=== PATIENT | female | born 1980 | race Caucasian/White ===

== ENCOUNTER → 2016-05-19 | Outpatient (REF) | payer SELFPAY ==
[~2016-05-19] MED LIST: COUM2TAB10 PO; TYLE325T5 PO
[2016-05-19 17:30] LABS: INR 1.68
== END ==
LOC: M SFHCLERA 11:25
PROVIDERS: ATTEND Family Medicine
DX: I82.402 Acute embolism and thrombosis of unspecified deep veins of left lower extremity (principal)

== ENCOUNTER → 2016-06-23 | Outpatient (REF) | payer SELFPAY ==
[2016-06-23 19:10] LABS: INR 1.22
== END ==
LOC: M SFHCLERA 10:16
PROVIDERS: ATTEND Family Medicine
DX: I82.402 Acute embolism and thrombosis of unspecified deep veins of left lower extremity (principal)

== ENCOUNTER → 2016-07-07 | Outpatient (CLI) | payer SELFPAY ==
--- NOTE | 2016-07-07 15:17 | REP ---
Clinical: History of deep venous thrombosis to evaluate for resolution. Technique: Krishnan scale and color Doppler evaluation using linear high frequency transducer. Findings: Ultrasound examination of the left lower extremity deep venous structures from the common femoral vein to the popliteal vein demonstrates nonocclusive thrombus from the common femoral vein to the popliteal vein. Impression: Residual nonocclusive thrombus in the left common femoral vein at the popliteal vein. Signed by Waldo Jimenez MD 07/07/2016 03:09 P
== END ==
LOC: M LRY 13:58
DX: I82.402 Acute embolism and thrombosis of unspecified deep veins of left lower extremity (principal)

== ENCOUNTER → 2016-07-07 | Outpatient (REF) | payer SELFPAY ==
[2016-07-07 18:07] LABS: INR 1.06
== END ==
LOC: M SFHCLERA 14:48
PROVIDERS: ATTEND Family Medicine
DX: I82.402 Acute embolism and thrombosis of unspecified deep veins of left lower extremity (principal)

== ENCOUNTER 2017-03-03 00:04 | Inpatient (IN) | payer SELFPAY ==
[~2017-03-03] VITALS: Ht 162.6 cm; Wt 68.2 kg
[2017-03-03] VITALS (8 sets, daily range): BP systolic 104–117; BP diastolic 53–64
[~2017-03-03 00:04] MED LIST changes: -COUM2TAB10 PO; +COUM2TAB22 PO
[2017-03-03] MEDS ORDERED: PENICILLIN G POTASSIUM IV 5 MU in D5W MINI-BAG PLUS 100 ML IV STA (00:48)
[2017-03-03] MEDS ORDERED: LR 1,000 ML IV SCH (00:48)
[2017-03-03 00:59] LABS: MEAN CORPUSCULAR HEMOGLOBIN 29.4 pg (27.0-33.0); MEAN CORPUSCULAR HGB CONC 34.7 g/dl (32.0-36.5); MEAN CORPUSCULAR VOLUME 84.8 fl (80.0-96.0); PLATELET COUNT, AUTOMATED 166 10^3/uL (150-450); RED CELL DISTRIBUTION WIDTH 13.2 % (11.5-14.5); WHITE BLOOD COUNT 8.6 10^3/uL (4.0-10.0)
--- NOTE | 2017-03-03 01:13 | IPNPDOC ---
Text Note Date of Service The patient was seen on 03/03/17. NOTE HISTORY & PHYSICAL EXAMINATION DATE OF ADMISSION: 03/03/2017 36-year-old, 12, para 9119, at 39-6/7 weeks gestation by last menstrual period of 05/28/2016 for an estimated date of delivery of 03/04/2017 presents with complaints of contractions starting around 7- 8:00pm. Upon evaluation, she is 4-5 cm, 90 % effaced, -2 station. She reports active movement. Denies loss of fluid or bleeding. Patient initiated care with a lay community mental health worker who has moved. [facility] at approximately 34 weeks gestation. Prepregnancy weight was unknown. Weight at entry to care at approximately 15 weeks was 137. Last weight in the office was 148. She has been normotensive through the . Last office visit was at 39 weeks 5 days on 03/02/2017. has been uncomplicated. Anatomy scan was not performed. OB HISTORY: December 2002. Stillbirth at approximately 6 months. January 2004 normal spontaneous vaginal delivery. March 2006, Normal spontaneous vaginal delivery. July 2007, normal spontaneous vaginal delivery. October 2008, normal spontaneous vaginal delivery. April 2010, normal spontaneous vaginal delivery. August 2011, normal spontaneous vaginal delivery. January 2013, normal spontaneous vaginal delivery. October 2013, normal spontaneous vaginal delivery. February 2015, normal spontaneous vaginal delivery. Patient reports an early miscarriage of an unknown date. ALLERGIES: No known drug allergies. MEDICAL/SURGICAL HISTORY: DVT in 2014. Patient was offered Lovenox at first visit at [facility] and she declined. FAMILY HISTORY: Hypertension. SOCIAL HISTORY: . Partner Ritesh is present. They are Ho. Denies tobacco , alcohol or drugs. No history of sexually transmitted infections OBJECTIVE: Labs are largely unknown. HIV and hepatitis B are negative. Group B strep is unknown. VITAL SIGNS: Stable. She is in no apparent distress, coping well. Breathing with contractions.. Abdomen is soft, gravid, nontender, longitudinal lie, vertex by Jim. Contractions 2-3 minutes apart, 60 seconds, strong to palpation. heart 130, moderate variability with accelerations, category 1 tracing. Sterile vaginal exam: 4-5 cm, 90 % effaced, -2 station, intact membranes and cephalic. ASSESSMENT: 36-year-old, 12, para 9119, at 39 weeks 6 days gestation, in active labor, category 1 tracing. Unknown group B strep PLAN: Admit. Remainder of panel ordered Patient and partner were counseled regarding unknown group B strep status and risks to the fetus. They have agreed to group B strep prophylaxis. Anticipate normal spontaneous vaginal . VS,Fishbone, I+O VS, Fishbone, I+O Vital Signs Date Time Temp Pulse Resp B/P (MAP) Pulse Ox O2 Delivery O2 Flow Rate FiO2 03/03/17 00:22 98.6 75 16 113/63 (80) Yarely Zhao CNM Mar 03, 2017 01:03
[2017-03-03] MEDS ORDERED: OXYTOCIN 30 UNITS IN 0.9% NaCl 500ML IV BAG (J2590) As Ordered ONE (02:00)
[2017-03-03] MEDS ORDERED: OXYTOCIN DRIP 30 UNITS in APPROPRIATE DILUENT 1 EA IV SCH (02:38)
[2017-03-03] MEDS ORDERED: IBUPROFEN 800 MG TAB PO PRN (02:45)
[2017-03-03] MEDS ORDERED: MOM 30ML SUSPENSION UDC PO PRN (02:45)
[2017-03-03] MEDS ORDERED: DOCUSATE SODIUM 100 MG CAP PO PRN (02:45)
[2017-03-03] MEDS ORDERED: DIBUCAINE 1% OINTMENT 30GM TOP PRN (02:45)
[2017-03-03] MEDS ORDERED: ACETAMINOPHEN 500 MG TAB PO PRN (02:45)
[2017-03-03] MEDS ORDERED: RHOGAM 300 MCG (1500 IU) INJ (J2790) IM SCH (02:45)
[2017-03-03] MEDS ORDERED: MEASLES,MUMPS,RUBELLA VACCINE INJ (MMR-II) (90707) SC SCH (02:45)
--- NOTE | 2017-03-03 02:52 | IPNPDOC ---
Text Note Date of Service The patient was seen on 03/03/17. NOTE Delivery Note Date of Service 03/03/2017 36 year old 12, now para 10-1-1-10, spontaneous onset labor at 39 weeks. Artificial rupture of membranes 03/03/2017 at 0150, clear, moderate amount. Utilized breathing for labor coping. Fully dilated, 0203. Viable female delivered AVINASH with out difficulty at 0212. Spontaneous respirations with stimulation. Transitioned on maternal abdomen. Cord doubly clamped and cut by father of the baby under my direction once pulsations ceased. scores 8 and 9. Placenta Robert intact with 3-vessel cord at 0223. Large amount of trailing membranes. Circumvallata placenta noted. Fundus firmed with massage and intravenous pitocin bolus. Estimated blood loss 200 mL. Perineum, cervix and vagina inspected. Intact. Sponge, sharp and instrument count correct. weight 7 pounds 7 ounces, 3320 grams. Parents are undecided about a name for their daughter at this time. VS,Fishbone, I+O VS, Fishbone, I+O Laboratory Tests 03/03/17 00:51 Red Blood Count 4.08, Mean Corpuscular Volume 84.8, Mean Corpuscular Hemoglobin 29.4, Mean Corpuscular Hemoglobin Concent 34.7, Red Cell Distribution Width 13.2 Vital Signs Date Time Temp Pulse Resp B/P (MAP) Pulse Ox O2 Delivery O2 Flow Rate FiO2 03/03/17 00:22 98.6 75 16 113/63 (80) Yarely Zhao CNM Mar 03, 2017 02:52
[2017-03-03] MEDS: METHYLERGONOVINE MALEATE 0.2 MG TAB PO SCH ×4 (03:00→20:59)
[2017-03-03] MEDS ORDERED: PENICILLIN G POTASSIUM IV 2.5 MU in D5W 100 ML IV SCH (05:00)
[2017-03-03] MEDS: PRENATAL VITAMINS CHEWABLE TABLET PO SCH (08:30)
[2017-03-04] MEDS ORDERED: METHYLERGONOVINE MALEATE 0.2 MG TAB PO PRN (02:45)
[2017-03-04 06:00] VITALS: BP 103/59
[2017-03-04] MEDS ORDERED: PRENTAB9 PO (07:35)
[2017-03-04] MEDS ORDERED: IBUP-1114 PO (07:35)
[2017-03-04] MEDS ORDERED: ACET50TA PO (07:35)
[2017-03-04] MEDS ORDERED: MOM30SS PO (07:35)
[2017-03-04] MEDS ORDERED: COLA100C5 PO (07:35)
[2017-03-04] MEDS: PRENATAL VITAMINS CHEWABLE TABLET PO SCH (07:43)
== END 2017-03-04 13:20 | disposition home or self-care (01) | DRG 560 ==
LOC: M LDO 00:04 → M LDI 00:33 → M OBS 04:00
PROVIDERS: ADMIT Advanced Practice Midwife; ATTEND Advanced Practice Midwife
PROC: 10E0XZZ Delivery of Products of Conception, External Approach (ICD-10-PCS; principal; 2017-03-03)
PROC: 10907ZC Drainage of Amniotic Fluid, Therapeutic from Products of Conception, Via Natural or Artificial Opening (ICD-10-PCS; 2017-03-03)
DX: O80 Encounter for full-term uncomplicated delivery (principal); Z37.0 Single live birth; Z3A.39 39 weeks gestation of pregnancy

== ENCOUNTER → 2018-04-12 | Outpatient (REF) | payer SELFPAY | LOC: M LAB REF 17:11 | DX: O09.523 Supervision of elderly multigravida, third trimester (principal) | CPT/HCPCS: 87081 ==

== ENCOUNTER 2018-05-20 05:08 | Inpatient (IN) | payer SELFPAY ==
[~2018-05-20] VITALS: Ht 162.6 cm; Wt 68.8 kg
[~2018-05-20 05:08] MED LIST changes: +COLA100C5 PO; +IBUP-1114 PO; +MAPA500T2 PO; +MOM30SS PO; +PRENTAB9 PO
[2018-05-20 05:36] VITALS: BP 106/57
[2018-05-20 08:03] VITALS: BP 100/51
[2018-05-20] MEDS ORDERED: LR 1,000 ML IV SCH (09:01)
[2018-05-20] MEDS ORDERED: LACTATED RINGER'S 1000 ML IV STA (09:01)
[2018-05-20 09:02] VITALS: BP 110/63
[2018-05-20 09:18] LABS: HEMATOCRIT 34.2 % (36.0-47.0); HEMOGLOBIN 11.6 g/dl (12.0-15.5); MEAN CORPUSCULAR HEMOGLOBIN 29.5 pg (27.0-33.0); MEAN CORPUSCULAR HGB CONC 33.9 g/dl (32.0-36.5); PLATELET COUNT, AUTOMATED 161 10^3/uL (150-450); RED BLOOD COUNT 3.93 10^6/uL (4.00-5.40); WHITE BLOOD COUNT 9.6 10^3/uL (4.0-10.0)
--- NOTE | 2018-05-20 09:19 | NUR ---
L&D H&P HPI: 38 year old ,1,1,10 at 41+5 weeks estimated gestation. Expected date of confinement: 05/08/18. dated by LMP c/w 32 week US. Presents today for late term induction of labor. Denies vaginal bleeding, loss of fluid, or uterine contractions. Reports regular movement. course complicated by grand multiparity, h/o stillborn in 2002, and unclear history regarding left lower ext DVT (2014). Pt has not been taking any VTE prophylaxis. She has had very scant care. The patient is Sikhism. labs: Blood type A+ Radiology/OB US: no anomalies or placental abnormalities detected. 03/15. History Past medical history: DVT/left lower ext in 2014 Surgical history: none Medications: PNV Allergies: [employer] INSPECTOR history: no STI OB history: x 11, SAB x 1. Stillborn in 2002 () Social history: Sikhism. no t/e/d Family history:unknown Objective Vitals: Normotensive, normal heart rate, afebrile Heart: Regular rate and rhythm. No murmurs, rubs or gallops. Lungs: Clear to auscultation bilaterally. No wheezes, crackles, rales or rhonchi. Abdomen: Uterine fundal height consistent with dates. No guarding or rebound tenderness. Extremities: No clubbing, cyanosis or edema. Normal deep tendon reflexes. Sterile vaginal exam: 6 cm, 75 %effacement, -2 station, cephalic, intact External monitoring: heart rate category 1 Tocodynamometer: contractions occurring irregularly Assessment/Plan 38 year old ,1,1,10 at 41+5 weeks gestation. Diagnosis: Late term gestation. Reassuring and maternal status. -Admit to labor and delivery with routine labs and orders -External monitoring and tocodynamometer -Pediatrics and anesthesia consultations as needed. -Induction of labor with Pitocin. Dr. Maged Leung, DO, FACOG
[2018-05-20] MEDS ORDERED: OXYTOCIN DRIP 30 UNITS in APPROPRIATE DILUENT 1 EA IV SCH ×2 (09:45→12:06)
[2018-05-20 10:36] VITALS: BP 101/56
--- NOTE | 2018-05-20 12:09 | NUR ---
Delivery note Spontaneous vaginal delivery Estimated gestational age at delivery: 41+5 weeks The active phase and second stage of labor progressed in normal fashion without epidural anesthesia. Patient received Pitocin labor augmentation. The head delivered left occiput anterior and restituted left occiput transverse. No nuchal cord was noted. The anterior shoulder delivered with gentle downward guidance and the remainder of the body delivered with ease. Cord clamping was delayed for approximately 1 minute after delivery. After doubly clamping the cord, the FOB cut the cord. The was placed on the patient's chest for immediate bonding. [place] data: Apgars 9 and 9. weight 3380 grams 7 pounds, 7 ounces. Time of delivery: 1155. Sex: Female. The third stage of labor was actively managed with a bolus of IV Pitocin (30 units in 500 mL of normal saline). The placenta delivered completely intact with no missing cotyledons at 1159. A three-vessel cord with a central insertion was noted. After delivery of the placenta, the uterine fundus was approximately 2 cm below the umbilicus and firm. IV Pitocin was continued to maintain uterine tone. A normal, low level of uterine bleeding was noted. The cervix, vagina, vulva and perineum were inspected for lacerations. No laceration was noted. Excellent hemostasis was noted. Estimated blood loss: 200ml. All sponges, needles, and instruments were accounted for per [employer] department protocol. Maged Leung D.O., F.Elyse.Michael.OMarisabel.
[2018-05-20] MEDS ORDERED: DIBUCAINE 1% OINTMENT 30GM TOP PRN (12:15)
[2018-05-20] MEDS ORDERED: IBUPROFEN 800 MG TAB PO PRN (12:15)
[2018-05-20] MEDS ORDERED: RHOGAM 300 MCG (1500 IU) INJ (J2790) IM SCH (12:15)
[2018-05-20] MEDS ORDERED: ACETAMINOPHEN 500 MG TAB PO PRN (12:15)
[2018-05-20] MEDS ORDERED: DOCUSATE SODIUM 100 MG CAP PO PRN (12:15)
[2018-05-20] MEDS ORDERED: ONDANSETRON 4MG/2ML VIAL (J2405) IV PRN (12:15)
[2018-05-20] MEDS ORDERED: PROMETHAZINE 25 MG TAB PO PRN (12:15)
[2018-05-20] MEDS ORDERED: MEASLES,MUMPS,RUBELLA VACCINE INJ (MMR-II) (90707) SC SCH (12:15)
[2018-05-20] MEDS: LR 1,000 ML IV SCH ×2 (12:30→21:16)
[2018-05-20] MEDS ORDERED: METHYLERGONOVINE MALEATE 0.2 MG/ML VIAL (J2210) IM ONE (12:45)
[2018-05-20] MEDS: METHYLERGONOVINE MALEATE 0.2 MG TAB PO SCH ×2 (17:09→20:53)
[2018-05-20 18:23] VITALS: BP 104/59
[2018-05-21] MEDS: METHYLERGONOVINE MALEATE 0.2 MG TAB PO SCH ×3 (02:11→07:58)
[2018-05-21] MEDS: LR 1,000 ML IV SCH ×2 (04:30→07:59)
[2018-05-21 06:00] VITALS: BP 96/55
--- NOTE | 2018-05-21 07:47 | NUR ---
Day 1 Status post , uncomplicated Subjective Pain is well controlled. Lochia decreasing and minimal. Voiding spontaneously. Tolerating a regular diet. Ambulating without any assistance. Denies any subjective fever/chills/nausea/vomiting/headache/visual changes/shortness of breath/chest pain. Breast feeding. Objective Vitals: Normotensive, normal heart rate, afebrile, adequate urine output. Heart: regular, rate, and rhythm. no murmurs/gallops/rubs Lungs: clear to auscultation bilaterally, no wheezes/crackles/rales/ronchi Abd: soft, nontender, nondistended, uterine fundus is 2cm below umbilicus and firm Ext: no significant edema, nontender, negative David's bilaterally. Assessment/Plan: day 1. Recovering well. Hemodynamically stable, afebrile, good pain control. -Routine care -Discharge to home later today; depending on Peds disposition of baby. -Routine infectious, fever, pain, and bleeding precautions reviewed Dr. Maged Leung, Americo.O., F.A.C.O.G.
[2018-05-21] MEDS ORDERED: PRENATAL VITAMINS CHEWABLE TABLET PO SCH (09:00)
[2018-05-21 15:29] LABS: HEPATITIS C VIRUS ABY INDEX 0.1 INDEX (<0.8); RUBELLA IgG QUALITATIVE IMMUNE (IMMUNE)
== END 2018-05-21 14:40 | disposition home or self-care (01) | DRG 560 ==
LOC: M LDO 05:08 → M LDI 06:22 → M OBS 15:21
PROVIDERS: ADMIT Obstetrics & Gynecology; ATTEND Obstetrics & Gynecology
PROC: 10E0XZZ Delivery of Products of Conception, External Approach (ICD-10-PCS; principal; 2018-05-20)
PROC: 3E033VJ Introduction of Other Hormone into Peripheral Vein, Percutaneous Approach (ICD-10-PCS; 2018-05-20)
DX: O48.0 Post-term pregnancy (principal); O09.523 Supervision of elderly multigravida, third trimester; Z37.0 Single live birth; Z3A.41 41 weeks gestation of pregnancy